=== PATIENT | male | born 1965 | race Caucasian/White ===

== ENCOUNTER 2024-04-25 20:41 | Emergency (ER) | payer BC, OTHER ==
[2024-04-25 20:45] VITALS: BP 158/89; PULSE 66; RESP 18; TEMP 98.6; BMI 37.5
== END 2024-04-26 01:53 | disposition home or self-care (01) ==
LOC: JERFT 20:41 → JER 20:41
DX: H01.004 Unspecified blepharitis left upper eyelid (principal)
CPT/HCPCS: 99283-25